=== PATIENT | male | born 1975 | race African-American/Black ===

== ENCOUNTER 2018-12-25 11:12 | Emergency (ER) | payer MEDICAID ==
[~2018-12-25] VITALS: Ht 182.9 cm; Wt 72.6 kg
[~2018-12-25 11:12] MED LIST: BACTRIM-DS1 EA ORAL; IBUPROFEN600 MG ORAL; NKM; NORCO 5-325 TA1 EACH ORAL
[2018-12-25 11:26] VITALS: BP 117/75
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
[2018-12-25] MEDS ORDERED: Methocarbamol 750mg tab ORAL ONE (11:30)
--- NOTE | 2018-12-25 12:23 | Diagnostic Imaging Report ---
EXAM: CT Chest Without Intravenous Contrast CLINICAL HISTORY: TRAUMA TECHNIQUE: Axial computed tomography images of the chest without intravenous contrast. Sagittal and coronal reformatted images were created and reviewed. CTDI is 15.27 mGy and DLP is 686 mGy-cm. One or more of the following dose reduction techniques were used: automated exposure control, adjustment of the mA and/or kV according to patient size, use of iterative reconstruction technique. COMPARISON: No relevant prior studies available. FINDINGS: Lungs: Mild paraseptal emphysematous changes in the lung apices. The lungs are otherwise clear. Pleural space: Unremarkable. No pneumothorax. No significant effusion. Heart: Unremarkable. No cardiomegaly. No significant pericardial effusion. Bones/joints: Unremarkable. No acute fracture. No dislocation. Soft tissues: Scattered punctate radiodense shrapnel along the right lateral chest wall and adjacent to the lateral margins of the right 4th, 5th, and 6th ribs and the anterior margin of the right scapula. Mild remote posttraumatic erosive changes along the lateral margin of the right 6th rib and mild remote post traumatic fragmentation along the anterior margin of the right scapula. Vasculature: Unremarkable. No thoracic aortic aneurysm. Lymph nodes: Unremarkable. No enlarged lymph nodes. Liver: Diffusely hypodense liver, suggesting fatty infiltration. IMPRESSION: 1. Scattered punctate radiodense shrapnel along the right lateral chest wall and adjacent to the lateral margins of the right 4th, 5th, and 6th ribs and the anterior margin of the right scapula. Mild remote posttraumatic erosive changes along the lateral margin of the right 6th rib and mild remote post traumatic fragmentation along the anterior margin of the right scapula. 2. Mild paraseptal emphysematous changes in the lung apices. 3. Diffusely hypodense liver, suggesting fatty infiltration.
[2018-12-25] MEDS ORDERED: IBUPROFEN600 MG ORAL (12:54)
[2018-12-25 13:00] VITALS: BP 117/75
--- NOTE | 2018-12-25 13:00 | NUR ---
ER DISCHARGE NOTE: Patient is cleared to be discharged per ERMD, pt is aox4, on room air, with stable vital signs. pt was given dc and prescription instructions, pt was able to verbalize understanding, pt id band removed without complications. pt is able to ambulate with steady gait. pt took all belongings.
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
== END 2018-12-25 13:00 | disposition home or self-care (01) ==
LOC: EMR 12:15
DX: T14.90XA Injury, unspecified, initial encounter (principal); R07.9 Chest pain, unspecified; R07.81 Pleurodynia; Y93.72 Activity, wrestling
CPT/HCPCS: 71250; 99284